=== PATIENT | male | born 1980 | race Hispanic/Latino ===

== ENCOUNTER 2017-06-26 05:42 | Emergency (ER) | payer OTHER ==
[2017-06-26] MEDS ORDERED: Lidocaine 1% 20 ML MDV ONE (05:58)
[2017-06-26] MEDS ORDERED: Adacel (T-DAP) 0.5 ML VIAL ONE (06:08)
[2017-06-26] MEDS ORDERED: Bacitracin Zinc 1 Packet ONE (06:45)
== END 2017-06-26 07:01 ==
LOC: NAV ERS 05:42
DX: S61.216A Laceration without foreign body of right little finger without damage to nail, initial encounter (principal); S61.212A Laceration without foreign body of right middle finger without damage to nail, initial encounter; S61.214A Laceration without foreign body of right ring finger without damage to nail, initial encounter; Z79.899 Other long term (current) drug therapy; W26.8XXA Contact with other sharp object(s), not elsewhere classified, initial encounter
CPT/HCPCS: 12002; 90471; 90715; J2001